=== PATIENT | male | born 1990 | race Caucasian/White ===

== ENCOUNTER 2022-04-23 19:00 | Emergency (ER) | payer OTHER ==
[2022-04-23] MEDS ORDERED: PROPOFOL 20 ML ONE ×2 (19:50→21:34)
[2022-04-23] MEDS ORDERED: Lidocaine 1% (PF) 30 ML VIAL ONE (20:03)
[2022-04-23] MEDS ORDERED: Ketamine 50 MG/ML (10ML VIAL) ONE (21:34)
[2022-04-23] MEDS ORDERED: Fentanyl 100 MCG/2 ML VIAL ONE (21:45)
== END 2022-04-23 23:10 | disposition home or self-care (01) ==
LOC: CSHERS 19:00
DX: S53.125A Posterior dislocation of left ulnohumeral joint, initial encounter (principal); F17.220 Nicotine dependence, chewing tobacco, uncomplicated; X58.XXXA Exposure to other specified factors, initial encounter
CPT/HCPCS: 99152; 99153; J2001; J2704; J3010